=== PATIENT | female | born 1985 | race Caucasian/White ===

== ENCOUNTER 2018-10-20 12:08 | Observation (INO) ==
[2018-10-20 12:52] LABS: Hematocrit 42.5 % (37.0-47.0); Hemoglobin 13.9 gm/dL (12.5-16.0); Mean Corpuscular Hemoglobin 29.4 pg (27-31); Mean Corpuscular Hgb Conc 32.7 g/dl (32-36); Mean Platelet Volume 9.1 fl (8-12.5); Neutrophil # 6.5 K/mm3 (1.3-6.0); Neutrophil % 68.5 % (42-75.0); Platelet Count 291 K/mm3 (150-450); Red Blood Count 4.72 M/mm3 (4.2-5.4); White Blood Count 9.4 K/mm3 (4.0-10.5)
[2018-10-20 13:05] LABS: Albumin * 4.3 gm/dl (3.4-5.0); Anion Gap 13.4 mmol/L (6.8-13.8); BUN/Creatinine Ratio 13.6 (9.0-21.6); Bilirubin, Total 0.4 mg/dL (0.0-1.1); Ca. Corrected For Albumin 8.8 mg/dL (8.4-10.2); Calcium * 9.4 mg/dL (7.9-10.9); Carbon Dioxide 28.9 mmol/L (24-32.6); Potassium 4.3 mmol/L (3.4-4.6); Total Protein 7.6 gm/dL (6.2-8.2)
--- NOTE | 2018-10-20 13:20 | ERNOTE ---
Medical Problem HPI - General Chief Complaint: Drug Overdose Time Seen by Provider: 10/20/18 12:51 Source: patient Exam Limitations: no limitations - Immun/Allergies/Home Medications Immunizations: IMMUNIZATION HX Immunizations Up to Date Yes History of Influenza Vaccine Yes Hx Pneumococcal Vaccination No Allergies/Adverse Reactions: Allergies No Known Allergies Allergy (Verified 10/20/18 14:00) Home Medications: HOME MEDICATIONS loratadine 10 mg tablet 10 mg PO DAILY PRN 05/05/18 [Last Taken Unknown] vitamin B12 500 mcg-folic acid 400 mcg tablet 1 tab PO 05/05/18 [Last Taken Unknown] bupropion HCl XL 300 mg 24 hr tablet, extended release 300 mg PO QAM #30 tab 06/24/18 [Last Taken Unknown] lorazepam 0.5 mg tablet 0.5 mg PO HS PRN 09/05/18 [Last Taken Unknown] lamoTRIgine [Lamictal] 400 mg PO DAILY 10/20/18 [Last Taken Unknown] - History of Present History Narrative: Patient took her morning meds at 09:00. After she took her kids to school she forgot that had taken them and took another dose at 10:00. She call her PCP who called poison control and told her that she needed to be admitted for 24hrs observation. She is anxious and scared right now, slightly nauseated, no other symptoms, no recent illness. This was not intentional, she feels very foolish about doing it Review of Systems - Review of Systems Constitutional: Absent: recent illness, fever ENT: Absent: nose congestion, sore throat Respiratory: Absent: shortness of breath, cough Cardiology: Absent: chest pain Gastrointestinal/Abdominal: Absent: nausea, vomiting, abdominal pain Genitourinary: Present: no symptoms reported Musculoskeletal: Absent: back pain Neurological: Present: anxiety. 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 Generalized anxiety disorder Major depressive disorder, recurrent episode Hx of migraines UTI (urinary tract infection) Surgical History: Surgical History (Last Reviewed 10/20/18 @ 13:16 by Michelle Harp MD) delivery delivered History of tonsillectomy Family History: Family History (Last Reviewed 10/20/18 @ 14:01 by Neena Landry RN) Mother Cancer Diabetes maternal Grandfather Diabetes maternal Grandmother Diabetes Father Kidney disease Brother Hydrocephalus Social History: Preferred Language [place] Smoking Status Current every day smoker Alcohol Use rarely Drug Use none (Last Reviewed 09/05/18 @ 09:43 by Jasmin Ledesma RN) No Social History Section defined Physical Exam - Physical Exam General Appearance: Present: wd/wn, alert, no apparent distress, anxious Head Exam: Present: normal inspection Eye Exam: Normal inspection: bilateral Ears, Nose, Throat: Present: normal ENT inspection, normal pharynx Respiratory: Present: no respiratory distress, normal breath sounds, chest nontender, lungs clear Cardiovascular/Chest: Present: regular rate, rhythm, no murmur Gastrointestinal/Abdominal: Present: normal bowel sounds, nontender Extremity Exam: Present: normal inspection Neurological Exam: Present: alert, oriented, normal mood/affect, no motor/sensory deficits Skin Exam: Present: normal color, warm/dry Progress - Results and Orders Patient's Lab Results:: I have reviewed the patient's lab results. - Vital Signs Patient's Vital Signs:: I have reviewed the patient's vital signs. Vital Signs: Vital Signs 10/20/18 12:25 Temperature 36.6 C Pulse Rate 86 Respiratory Rate 18 Blood Pressure 143/99 H O2 Sat by Pulse Oximetry 100 - EKG EKG #1 EKG: NSR, no ST T wave changes EKG read: Interp. by me - Progress/Reassessment Chief Complaint: Drug Overdose Progress Note-Subjective: 10/20/18 13:18 see nurses for poison control recommendation 10/20/18 13:21 discussed with yamilet Hartley to admit for observation Departure Clinical Impression: Accidental drug overdose Qualifiers: Encounter type: initial encounter Qualified Code(s): T50.901A - Poisoning by unspecified drugs, medicaments and biological substances, accidental (unintentional), initial encounter - Departure Disposition: Still a patient Condition: Stable
[2018-10-20] MEDS ORDERED: LORazepam 0.5 MG TABLET PO PRN (16:04)
[2018-10-20] MEDS ORDERED: ACETAMINOPHEN 325 MG TABLET PO PRN (16:44)
--- NOTE | 2018-10-20 17:04 | HP ---
Chief Complaint - Chief Complaint Date of Service: 10/20/18 Time of Service: 16:45 Chief Complaint: accidental overdose History of Present Illness: Patient with past medical history of bipolar disorder presented after accidentally taking double dose of her prescribed medications this morning. She states that her routine was a little bit off because her kids had a 2-hour delay from school. She took her medicines around 9, brought her kids to school, then forgot she took her medicines already and took them again. About an hour later she started feeling dizzy and lightheaded, and realized she took too much of her medicine. She developed some increased anxiety, shakiness and tremors, which have now improved. She was able to eat dinner. She feels like her balance is a bit off when she ambulates to the bathroom. She reports having drank 3 beers last night. Denies any other drug use. Denies intentional overdose or suicidal ideation. 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 Generalized anxiety disorder Major depressive disorder, recurrent episode Hx of migraines UTI (urinary tract infection) Surgical History: Surgical History (Last Reviewed 10/20/18 @ 14:00 by Neena Landry RN) delivery delivered History of tonsillectomy Family History: Family History (Last Reviewed 10/20/18 @ 14:01 by Neena Landry RN) Mother Cancer Diabetes maternal Grandfather Diabetes maternal Grandmother Diabetes Father Kidney disease Brother Hydrocephalus Social History: Patient Lives/Resources Home Utilized Preferred Language Frisian Smoking Status Current every day smoker Have you smoked in the past 12 Yes months Do you dip or chew tobacco No Alcohol Use rarely Drug Use none (Last Reviewed 09/05/18 @ 09:43 by Jasmin Ledesma RN) No Social History Section defined Review Of Systems (GEN) - Review of Systems Generalized/Overall Review: Absent: Fever Respiratory: Absent: Cough, Shortness of Breath Cardiac: Absent: Edema Abdominal: Absent: Vomiting Genitourinary: Absent: Burning Neurological: Present: Other - dizziness, decreased balance Immunizations: IMMUNIZATION HX Immunizations Up to Date Yes History of Influenza Vaccine Yes Hx Pneumococcal Vaccination No Allergies/Adverse Reactions: Allergies Allergy/AdvReac Type Severity Reaction Status Date / Time No Known Allergies Allergy Verified 10/20/18 14:00 Home Medications: HOME MEDICATIONS loratadine 10 mg tablet 10 mg PO DAILY PRN 05/05/18 [Last Taken Unknown] vitamin B12 500 mcg-folic acid 400 mcg tablet 1 tab PO 05/05/18 [Last Taken Unknown] bupropion HCl XL 300 mg 24 hr tablet, extended release 300 mg PO QAM #30 tab 06/24/18 [Last Taken Unknown] lorazepam 0.5 mg tablet 0.5 mg PO HS PRN 09/05/18 [Last Taken Unknown] lamoTRIgine [Lamictal] 400 mg PO DAILY 10/20/18 [Last Taken Unknown] Exam - Exam Vital Signs: Vital Signs - Last Taken Temp 36.2 C 10/20/18 13:30 Pulse 84 10/20/18 13:30 Resp 25 H 10/20/18 13:30 BP 151/95 H 10/20/18 13:30 Pulse Ox 97 10/20/18 13:30 Constitutional: Present: Alert, Oriented x3, Cooperative ENT Exam: Present: other - poor dentition Respiratory: Present: normal breath sounds Cardiovascular/Chest: Present: regular rate, rhythm Abdomen: Present: Normal bowel sounds, soft, nontender 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: 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: 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 II-XII nml as tested Appearance: Present: appropriate insight Eye contact: Present: cooperative Diagnostic Studies: Abnormal Lab Results 10/20/18 10/20/18 Range/Units 12:44 12:44 Neutrophils # 6.5 H (1.3-6.0) K/mm3 ALT 14 L (19-67) U/L Laboratory Results WBC 9.4 K/mm3 (4.0-10.5) 10/20/18 12:44 RBC 4.72 M/mm3 (4.2-5.4) 10/20/18 12:44 Hgb 13.9 gm/dL (12.5-16.0) 10/20/18 12:44 Hct 42.5 % (37.0-47.0) 10/20/18 12:44 MCV 90.0 fl (78-100) 10/20/18 12:44 MCH 29.4 pg (27-31) 10/20/18 12:44 MCHC 32.7 g/dl (32-36) 10/20/18 12:44 RDW 13.0 % (11.5-14.0) 10/20/18 12:44 Plt Count 291 K/mm3 (150-450) 10/20/18 12:44 MPV 9.1 fl (8-12.5) 10/20/18 12:44 Immature Gran % (Auto) 0.20 % (0.001-0.429) 10/20/18 12:44 Immature Gran # (Auto) 0.02 K/mm3 (0.000-0.0310) 10/20/18 12:44 Neutrophils % 68.5 % (42-75.0) 10/20/18 12:44 Lymphocytes % 22.1 % (20-51) 10/20/18 12:44 Monocytes % 7.6 % (0.0-9) 10/20/18 12:44 Eosinophils % 1.0 % (0.0-3.0) 10/20/18 12:44 Basophils % 0.6 % (0.0-1.0) 10/20/18 12:44 Nucleated RBC % 0.0 k/mm3 (0-1) 10/20/18 12:44 Neutrophils # 6.5 K/mm3 (1.3-6.0) H 10/20/18 12:44 Lymphocytes # 2.08 k/mm3 (1.5-3.5) 10/20/18 12:44 Monocytes # 0.7 k/mm3 (0.0-1.0) 10/20/18 12:44 Eosinophils # 0.1 k/mm3 (0.0-0.7) 10/20/18 12:44 Absolute Basophils 0.1 k/mm3 (0.0-0.1) 10/20/18 12:44 Sodium 140 mmol/L (132-142) 10/20/18 12:44 Plasma Sodium 140 mmol/L (130-142) 10/20/18 12:44 Potassium 4.3 mmol/L (3.4-4.6) 10/20/18 12:44 Chloride 102 mmol/L (97-106) 10/20/18 12:44 Carbon Dioxide 28.9 mmol/L (24-32.6) 10/20/18 12:44 Anion Gap 13.4 mmol/L (6.8-13.8) 10/20/18 12:44 BUN 14 mg/dL (3-23) 10/20/18 12:44 Creatinine 1.03 mg/dL (0.4-1.4) 10/20/18 12:44 Est GFR (Non-Af Amer) 65 mL/min (60-130) 10/20/18 12:44 BUN/Creatinine Ratio 13.6 (9.0-21.6) 10/20/18 12:44 Random Glucose 84 mg/dL (70-110) 10/20/18 12:44 Calcium 9.4 mg/dL (7.9-10.9) 10/20/18 12:44 Calcium Adj for Albumin 8.8 mg/dL (8.4-10.2) 10/20/18 12:44 Magnesium 2.0 mg/dL (1.2-2.8) 10/20/18 12:44 Total Bilirubin 0.4 mg/dL (0.0-1.1) 10/20/18 12:44 AST 18 U/L (0-48) 10/20/18 12:44 ALT 14 U/L (19-67) L 10/20/18 12:44 Alkaline Phosphatase 85 U/L (50-170) 10/20/18 12:44 Total Protein 7.6 gm/dL (6.2-8.2) 10/20/18 12:44 Albumin 4.3 gm/dl (3.4-5.0) 10/20/18 12:44 Serum HCG, Qual Negative (NEGATIVE) 10/20/18 12:44 Assessment/Plan - Assessment/Plan (1) Accidental drug overdose Assessment: She reports taking double dose, accidently, of her Wellbutrin and lamotrigine. Her prescribed dose is 150 mg Wellbutrin, and 200 mg twice daily lamotrigine. She states her mother already bought her a pill frost to help her manage her medications. Poison control was called, who recommended 24-hour surveillance. She states she is feeling better. Will obtain every 4 hours vital signs. Regular diet. She can have some Tylenol for headache as needed. Problem: Acute Qualifiers: Encounter type: initial encounter Qualified Code(s): T50.901A - Poisoning by unspecified drugs, medicaments and biological substances, accidental (unintentional), initial encounter (2) Bipolar disorder Assessment: Holding her prescribed Wellbutrin and lamotrigine. Will keep her prescribed prn lorazepam qhs. She is currently displaying appropriate insight. Problem: Chronic Qualifiers:
--- NOTE | 2018-10-21 08:38 | DS ---
(1) Accidental drug overdose Problem: Resolved Qualifiers: Encounter type: initial encounter Qualified Code(s): T50.901A - Poisoning by unspecified drugs, medicaments and biological substances, accidental (unintentional), initial encounter (2) Bipolar disorder Problem: Chronic Qualifiers: Description of Stay: Patient with past medical history of bipolar disorder presented after accidentally taking double dose of her prescribed medications. She states that her routine was a little bit off because her kids had a 2-hour delay from school. She took her medicines around 9, brought her kids to school, then forgot she took her medicines already and took them again. About an hour later she started feeling dizzy and lightheaded, and realized she took too much of her medicine. She reports having drank 3 beers the night before admission, and denies ingesting any other drugs. She developed some increased anxiety, shakiness and tremors, which improved by the time of my exam. She was able to eat without difficulty. Denied intentional overdose or suicidal ideation. Poison control was called, who recommended 24 hour observation. Her symptoms improved, and she felt comfortable leaving on the day of discharge. Procedures Performed: none Results and Findings: Lab Pending Results 10/20/18 12:44: WBC 9.4, RBC 4.72, Hgb 13.9, Hct 42.5, MCV 90.0, MCH 29.4, MCHC 32.7, RDW 13.0, Plt Count 291, MPV 9.1, Immature Gran % (Auto) 0.20, Immature Gran # (Auto) 0.02, Neutrophils % 68.5, Lymphocytes % 22.1, Monocytes % 7.6, Eosinophils % 1.0, Basophils % 0.6, Nucleated RBC % 0.0, Neutrophils # 6.5 H, Lymphocytes # 2.08, Monocytes # 0.7, Eosinophils # 0.1, Absolute Basophils 0.1 10/20/18 12:44: Sodium 140, Plasma Sodium 140, Potassium 4.3, Chloride 102, Carbon Dioxide 28.9, Anion Gap 13.4, BUN 14, Creatinine 1.03, Est GFR (Non-Af Amer) 65, BUN/Creatinine Ratio 13.6, Random Glucose 84, Calcium 9.4, Calcium Adj for Albumin 8.8, Total Bilirubin 0.4, AST 18, ALT 14 L, Alkaline Phosphatase 85, Total Protein 7.6, Albumin 4.3 10/20/18 12:44: Serum HCG, Qual Negative 10/20/18 12:44: Magnesium 2.0 Discharge Location: Home Disposition: Home self-care Condition: Stable Discharge Activity: Activity as tolerated Discharge Diet: General/regular food Complete Home Medications List: Complete Home Medication List: loratadine 10 mg tablet 10 mg PO DAILY PRN 05/05/18 vitamin B12 500 mcg-folic acid 400 mcg tablet 1 tab PO 05/05/18 bupropion HCl XL 300 mg 24 hr tablet, extended release 300 mg PO QAM #30 tab 06/24/18 lorazepam 0.5 mg tablet 0.5 mg PO HS PRN 09/05/18 lamoTRIgine [Lamictal] 400 mg PO DAILY 10/20/18 Acetaminophen [Tylenol] 325 mg PO Q6H PRN tablet 10/21/18
[2018-10-21 14:15] VITALS: BP 130/75
== END 2018-10-21 14:00 | disposition home or self-care (01) ==
LOC: MS 12:08 → ER 12:08 → MS 13:52
PROVIDERS: ADMIT Family Medicine; ATTEND Family Medicine
CPT/HCPCS: 36415; 80053; 83735; 84703; 85025; 93005; 99285; G0378